=== PATIENT | female | born 1935 | race Caucasian/White ===

== ENCOUNTER 2017-02-16 11:45 | Outpatient (CLI) | payer MEDICARE, BC | END 2017-02-16 23:59 | disposition home or self-care (01) | LOC: WOU 11:45 | PROVIDERS: ATTEND Specialist | DX: L59.8 Other specified disorders of the skin and subcutaneous tissue related to radiation (principal); C44.722 Squamous cell carcinoma of skin of right lower limb, including hip; I48.2 Chronic atrial fibrillation; L97.812 Non-pressure chronic ulcer of other part of right lower leg with fat layer exposed; Z87.891 Personal history of nicotine dependence; T81.89XD Other complications of procedures, not elsewhere classified, subsequent encounter | CPT/HCPCS: 71020-TC; 87070-TC; 87075-TC; A6253; G0463 ==

== ENCOUNTER 2017-02-23 09:54 | Outpatient (CLI) | payer MEDICARE, BC | END 2017-02-23 23:59 | disposition home or self-care (01) | LOC: WOU 09:54 | PROVIDERS: ATTEND Specialist | DX: L59.8 Other specified disorders of the skin and subcutaneous tissue related to radiation (principal); T81.89XD Other complications of procedures, not elsewhere classified, subsequent encounter; C44.722 Squamous cell carcinoma of skin of right lower limb, including hip; I48.2 Chronic atrial fibrillation; L97.812 Non-pressure chronic ulcer of other part of right lower leg with fat layer exposed; Z87.891 Personal history of nicotine dependence; Z79.01 Long term (current) use of anticoagulants | CPT/HCPCS: A6253; A6402; G0463 ==

== ENCOUNTER 2017-03-09 13:24 | Outpatient (CLI) | payer MEDICARE, BC | END 2017-03-09 23:59 | disposition home or self-care (01) | LOC: WOU 13:24 | PROVIDERS: ATTEND Specialist | DX: L59.8 Other specified disorders of the skin and subcutaneous tissue related to radiation (principal); C44.722 Squamous cell carcinoma of skin of right lower limb, including hip; I48.2 Chronic atrial fibrillation; L97.812 Non-pressure chronic ulcer of other part of right lower leg with fat layer exposed; Z87.891 Personal history of nicotine dependence; Z79.01 Long term (current) use of anticoagulants; H40.9 Unspecified glaucoma; Z79.899 Other long term (current) drug therapy; Z87.828 Personal history of other (healed) physical injury and trauma | CPT/HCPCS: 11042; A6402 ×2 ==

== ENCOUNTER 2017-03-16 13:25 | Outpatient (CLI) | payer MEDICARE, BC | END 2017-03-16 23:59 | disposition home or self-care (01) | LOC: WOU 13:25 | PROVIDERS: ATTEND Specialist | DX: L59.8 Other specified disorders of the skin and subcutaneous tissue related to radiation (principal); L97.812 Non-pressure chronic ulcer of other part of right lower leg with fat layer exposed; C44.722 Squamous cell carcinoma of skin of right lower limb, including hip; T81.89XD Other complications of procedures, not elsewhere classified, subsequent encounter; Z79.01 Long term (current) use of anticoagulants; Z79.899 Other long term (current) drug therapy; W22.8XXD Striking against or struck by other objects, subsequent encounter; Z87.891 Personal history of nicotine dependence; H40.9 Unspecified glaucoma; M35.00 Sjogren syndrome, unspecified | CPT/HCPCS: 11042; 87070; A6402; 87186-TC ==

== ENCOUNTER 2017-03-30 14:07 | Outpatient (CLI) | payer MEDICARE, BC | END 2017-03-30 23:59 | disposition home or self-care (01) | LOC: WOU 14:07 | PROVIDERS: ATTEND Specialist | DX: L59.8 Other specified disorders of the skin and subcutaneous tissue related to radiation (principal); L97.812 Non-pressure chronic ulcer of other part of right lower leg with fat layer exposed; C44.722 Squamous cell carcinoma of skin of right lower limb, including hip; I48.2 Chronic atrial fibrillation; Z87.891 Personal history of nicotine dependence; Z79.01 Long term (current) use of anticoagulants; Z86.14 Personal history of Methicillin resistant Staphylococcus aureus infection; T81.89XD Other complications of procedures, not elsewhere classified, subsequent encounter | CPT/HCPCS: 11042; A6402 ==

== ENCOUNTER 2017-06-22 14:10 | Outpatient (CLI) | payer MEDICARE, BC | END 2017-06-22 23:59 | disposition home or self-care (01) | LOC: WOU 14:10 | PROVIDERS: ATTEND Specialist | DX: L59.8 Other specified disorders of the skin and subcutaneous tissue related to radiation (principal); Z87.891 Personal history of nicotine dependence; Z86.14 Personal history of Methicillin resistant Staphylococcus aureus infection; I48.91 Unspecified atrial fibrillation; Z79.01 Long term (current) use of anticoagulants; I87.311 Chronic venous hypertension (idiopathic) with ulcer of right lower extremity; L97.812 Non-pressure chronic ulcer of other part of right lower leg with fat layer exposed; Z87.828 Personal history of other (healed) physical injury and trauma | CPT/HCPCS: 15271; A6253; A6402 ==

== ENCOUNTER 2017-06-29 13:40 | Outpatient (CLI) | payer MEDICARE, BC | END 2017-06-29 23:59 | disposition home health service (06) | LOC: WOU 13:40 | PROVIDERS: ATTEND Specialist | DX: L59.8 Other specified disorders of the skin and subcutaneous tissue related to radiation (principal); Z86.14 Personal history of Methicillin resistant Staphylococcus aureus infection; T14.90XS Injury, unspecified, sequela; W22.8XXS Striking against or struck by other objects, sequela; I87.301 Chronic venous hypertension (idiopathic) without complications of right lower extremity; Z87.891 Personal history of nicotine dependence | CPT/HCPCS: A6402; G0463 ==

== ENCOUNTER 2017-07-06 13:45 | Outpatient (CLI) | payer MEDICARE, BC | END 2017-07-06 23:59 | disposition home health service (06) | LOC: WOU 13:45 | PROVIDERS: ATTEND Specialist | DX: L59.8 Other specified disorders of the skin and subcutaneous tissue related to radiation (principal); I87.311 Chronic venous hypertension (idiopathic) with ulcer of right lower extremity; L97.812 Non-pressure chronic ulcer of other part of right lower leg with fat layer exposed; Z87.891 Personal history of nicotine dependence; Z86.14 Personal history of Methicillin resistant Staphylococcus aureus infection; Z79.01 Long term (current) use of anticoagulants; I48.91 Unspecified atrial fibrillation; H40.9 Unspecified glaucoma; Z85.828 Personal history of other malignant neoplasm of skin; M35.00 Sjogren syndrome, unspecified | CPT/HCPCS: 15271; A6253; A6402; Q4132 ==

== ENCOUNTER 2017-07-13 14:10 | Outpatient (CLI) | payer MEDICARE, BC | END 2017-07-13 23:59 | disposition home health service (06) | LOC: WOU 14:10 | PROVIDERS: ATTEND Specialist | DX: I87.311 Chronic venous hypertension (idiopathic) with ulcer of right lower extremity (principal); L97.812 Non-pressure chronic ulcer of other part of right lower leg with fat layer exposed; L59.8 Other specified disorders of the skin and subcutaneous tissue related to radiation; Z87.891 Personal history of nicotine dependence; Z85.828 Personal history of other malignant neoplasm of skin; Z86.14 Personal history of Methicillin resistant Staphylococcus aureus infection; I48.91 Unspecified atrial fibrillation; Z79.01 Long term (current) use of anticoagulants | CPT/HCPCS: 15271; A6253; A6402 ==

== ENCOUNTER 2017-07-20 13:30 | Outpatient (CLI) | payer MEDICARE, BC | END 2017-07-20 23:59 | disposition home health service (06) | LOC: WOU 13:30 | PROVIDERS: ATTEND Specialist | DX: L59.8 Other specified disorders of the skin and subcutaneous tissue related to radiation (principal); Z86.14 Personal history of Methicillin resistant Staphylococcus aureus infection; Z87.891 Personal history of nicotine dependence; I87.311 Chronic venous hypertension (idiopathic) with ulcer of right lower extremity; L97.812 Non-pressure chronic ulcer of other part of right lower leg with fat layer exposed; C44.321 Squamous cell carcinoma of skin of nose | CPT/HCPCS: 15271; A6402; Q4132 ==

== ENCOUNTER 2017-07-27 13:40 | Outpatient (CLI) | payer MEDICARE, BC | END 2017-07-27 23:59 | disposition home health service (06) | LOC: WOU 13:40 | PROVIDERS: ATTEND Specialist | DX: L59.8 Other specified disorders of the skin and subcutaneous tissue related to radiation (principal); L97.812 Non-pressure chronic ulcer of other part of right lower leg with fat layer exposed; I48.91 Unspecified atrial fibrillation; M35.00 Sjogren syndrome, unspecified; C44.92 Squamous cell carcinoma of skin, unspecified; Z87.891 Personal history of nicotine dependence; I87.311 Chronic venous hypertension (idiopathic) with ulcer of right lower extremity; Z79.01 Long term (current) use of anticoagulants; Z79.899 Other long term (current) drug therapy; Z86.14 Personal history of Methicillin resistant Staphylococcus aureus infection; Z87.828 Personal history of other (healed) physical injury and trauma | CPT/HCPCS: 11042; A6402 ==

== ENCOUNTER 2017-08-03 12:35 | Outpatient (CLI) | payer MEDICARE, BC | END 2017-08-03 23:59 | disposition home health service (06) | LOC: WOU 12:35 | PROVIDERS: ATTEND Specialist | DX: L59.8 Other specified disorders of the skin and subcutaneous tissue related to radiation (principal); I87.311 Chronic venous hypertension (idiopathic) with ulcer of right lower extremity; L97.212 Non-pressure chronic ulcer of right calf with fat layer exposed; Z87.891 Personal history of nicotine dependence; Z86.14 Personal history of Methicillin resistant Staphylococcus aureus infection; Z79.01 Long term (current) use of anticoagulants; Z79.899 Other long term (current) drug therapy | CPT/HCPCS: 15271; A6253; A6402 ==

== ENCOUNTER 2017-08-10 13:30 | Outpatient (CLI) | payer MEDICARE, BC | END 2017-08-10 23:59 | disposition home health service (06) | LOC: WOU 13:30 | PROVIDERS: ATTEND Specialist | DX: L59.8 Other specified disorders of the skin and subcutaneous tissue related to radiation (principal); I87.311 Chronic venous hypertension (idiopathic) with ulcer of right lower extremity; L97.212 Non-pressure chronic ulcer of right calf with fat layer exposed; Z85.828 Personal history of other malignant neoplasm of skin; Z87.891 Personal history of nicotine dependence; Z86.14 Personal history of Methicillin resistant Staphylococcus aureus infection; I48.91 Unspecified atrial fibrillation; Z79.01 Long term (current) use of anticoagulants; Z79.899 Other long term (current) drug therapy | CPT/HCPCS: 11042; 87070; 87075; 87077; A6209; A6402 ==

== ENCOUNTER 2017-08-24 12:11 | Outpatient (CLI) | payer MEDICARE, BC | END 2017-08-24 23:59 | disposition home health service (06) | LOC: WOU 12:11 | PROVIDERS: ATTEND Specialist | DX: L59.8 Other specified disorders of the skin and subcutaneous tissue related to radiation (principal); L97.211 Non-pressure chronic ulcer of right calf limited to breakdown of skin; I87.311 Chronic venous hypertension (idiopathic) with ulcer of right lower extremity; Z85.828 Personal history of other malignant neoplasm of skin; Z87.891 Personal history of nicotine dependence; I48.91 Unspecified atrial fibrillation; Z79.01 Long term (current) use of anticoagulants | CPT/HCPCS: 97597; A6209; A6402; 11042 ==

== ENCOUNTER 2017-09-07 13:45 | Outpatient (CLI) | payer MEDICARE, BC | END 2017-09-07 23:59 | disposition home health service (06) | LOC: WOU 13:45 | PROVIDERS: ATTEND Specialist | DX: L59.8 Other specified disorders of the skin and subcutaneous tissue related to radiation (principal); I87.311 Chronic venous hypertension (idiopathic) with ulcer of right lower extremity; L97.211 Non-pressure chronic ulcer of right calf limited to breakdown of skin; Z87.891 Personal history of nicotine dependence; Z86.14 Personal history of Methicillin resistant Staphylococcus aureus infection; I48.91 Unspecified atrial fibrillation; Z79.01 Long term (current) use of anticoagulants | CPT/HCPCS: A6209; A6402; G0463 ==

== ENCOUNTER 2017-09-14 13:28 | Outpatient (CLI) | payer MEDICARE, BC | END 2017-09-14 23:59 | disposition home health service (06) | LOC: WOU 13:28 | PROVIDERS: ATTEND Specialist | DX: L59.9 Disorder of the skin and subcutaneous tissue related to radiation, unspecified (principal); I87.311 Chronic venous hypertension (idiopathic) with ulcer of right lower extremity; L97.211 Non-pressure chronic ulcer of right calf limited to breakdown of skin; Z87.891 Personal history of nicotine dependence; I48.91 Unspecified atrial fibrillation; Z79.01 Long term (current) use of anticoagulants | CPT/HCPCS: A6209; A6402; G0463 ==

== ENCOUNTER → 2017-09-28 | Outpatient (CLI) | payer MEDICARE, BC | END | disposition home health service (06) | LOC: WOU 13:50 | PROVIDERS: ATTEND Specialist | DX: L59.9 Disorder of the skin and subcutaneous tissue related to radiation, unspecified (principal); I87.311 Chronic venous hypertension (idiopathic) with ulcer of right lower extremity; L97.211 Non-pressure chronic ulcer of right calf limited to breakdown of skin; I48.91 Unspecified atrial fibrillation; Z79.01 Long term (current) use of anticoagulants; Z87.891 Personal history of nicotine dependence | CPT/HCPCS: A6402; G0463 ==